=== PATIENT | female | born 1970 | race Caucasian/White ===

== ENCOUNTER → 2017-02-09 | Outpatient (CLI) | payer OTHER ==
[~2017-02-09] MED LIST: ACET325T14 PO; ALPR-475 PO; CALC1TAB PO; CHOL50002 PO; CYCL-259 PO; CYCL5TAB10 PO; DIAZ5TAB PO; DOCU100C PO; DOXY100T PO; FURO-92 PO; GABA300C10 PO; HYDR1TAB12; HYDR1TAB12 PO; HYOS0.127 PO; IRON15TA3 PO; LORA-445 PO; MVI,10VI2 HOMEMISC; NALO0.4D2 IM; NALO0.4V14 IM; NALO25TA PO; OMEG300C PO; OMEP20CA9 PO; ONDA4TAB13 SL; OXYC20TA2 PO; OXYC30TA PO; OXYC5TAB3 PO; PROM25SU34 PO; TIZA2CAP PO; [UNRECOGNIZED DRUG - CODE] PO; hycosamine SL
== END | disposition home or self-care (01) ==
LOC: CFH 15:34
PROVIDERS: ATTEND Nurse Practitioner Family
DX: M54.2 Cervicalgia (principal); R13.10 Dysphagia, unspecified; R22.1 Localized swelling, mass and lump, neck
CPT/HCPCS: 72050; 76536

== ENCOUNTER 2017-03-17 16:52 | Emergency (ER) | payer OTHER ==
[~2017-03-17] VITALS: Ht 165.1 cm; Wt 86.0 kg
[2017-03-17] MEDS ORDERED: SODIUM CHLORIDE 0.9% 1,000ML IVBOLUS ONE (18:00)
[2017-03-17] MEDS ORDERED: ASPIRIN 81 MG TABLET CHEW PO ONE (18:00)
[2017-03-17] MEDS ORDERED: SODIUM CHLORIDE FLUSH 10ML SYR IVF ONE (18:00)
[2017-03-17] MEDS ORDERED: ONDANSETRON 2MG/ML, 2ML IVPush ONE (18:00)
[2017-03-17 18:21] LABS: ASPARTATE AMINO TRANSFERASE 28 U/L (15-37); BLOOD UREA NITROGEN 18 mg/dL (7-18)
[2017-03-17] MEDS ORDERED: ASPIRIN 81 MG TABLET CHEW ONE (18:21)
[2017-03-17] MEDS ORDERED: ONDANSETRON 2MG/ML, 2ML ONE (18:21)
[2017-03-17 18:29] LABS: IS PT STATUS REG ER OR PRE ER? YES
[2017-03-17 19:29] VITALS: BP 133/74
== END 2017-03-17 19:31 | disposition home or self-care (01) ==
LOC: ED 19:25
DX: R07.89 Other chest pain (principal); G43.909 Migraine, unspecified, not intractable, without status migrainosus; K75.9 Inflammatory liver disease, unspecified; K21.9 Gastro-esophageal reflux disease without esophagitis
CPT/HCPCS: 36415; 71010; 80053; 82962; 83690; 84484; 85025; 93005; 96361; 96374; 99285; J2405; J7030

== ENCOUNTER → 2017-04-10 | Outpatient (CLI) | payer OTHER ==
[~2017-04-10] MED LIST changes: +GADOBUTROL 10 MMOL/10 ML PFS ONE
== END | disposition home or self-care (01) ==
LOC: RAD 14:36 → EDSTATUS 14:45
PROVIDERS: ATTEND Neurological Surgery
DX: M48.02 Spinal stenosis, cervical region (principal); M50.21 Other cervical disc displacement, high cervical region; M50.221 Other cervical disc displacement at C4-C5 level; Z98.890 Other specified postprocedural states; Z98.1 Arthrodesis status
CPT/HCPCS: 70543; A9585

== ENCOUNTER 2017-12-20 16:43 | Inpatient (IN) | payer OTHER ==
[~2017-12-20] VITALS: Ht 165.1 cm; Wt 92.3 kg
[~2017-12-20 16:43] MED LIST changes: +DOCU-180 PO; -DOCU100C PO; -GADOBUTROL 10 MMOL/10 ML PFS ONE; +HYOS0.1268 PO; -HYOS0.127 PO
[2017-12-20] MEDS ORDERED: METH500T97 PO (17:01)
[2017-12-20] MEDS ORDERED: PANT20TA2 PO (17:03)
[2017-12-20] MEDS ORDERED: CARB200T4 PO (17:04)
[2017-12-20] MEDS ORDERED: SODIUM CHLORIDE 0.9% 1,000ML IVBOLUS ONE (17:30)
[2017-12-20] MEDS ORDERED: SODIUM CHLORIDE FLUSH 10ML SYR IVF ONE (17:30)
[2017-12-20 17:50] LABS: BASOPHILS # (AUTO) 0.02 x10^3/uL (0-0.1); BASOPHILS % (AUTO) 0 % (0-1); EOSINOPHILS # (AUTO) 0.08 x10^3/uL (0-0.4); EOSINOPHILS % (AUTO) 1 % (1-7); LYMPHOCYTES # (AUTO) 1.58 x10^3/uL (1-3.4); LYMPHOCYTES % (AUTO) 26 % (22-44); MD NO; MEAN CORPUSCULAR HGB CONC 32.8 g/dL (32.4-35.8); MEAN CORPUSCULAR VOLUME 85.4 fL (80-100); MEAN PLATELET VOLUME 8.6 fL (7.4-10.4); MONOCYTES # (AUTO) 0.39 x10^3/uL (0.2-0.8); MONOCYTES % (AUTO) 7 % (2-9); NEUTROPHILS # (AUTO) 3.92 x10^3/uL (1.8-6.8); NEUTROPHILS % (AUTO) 66 % (42-75); PLATELET COUNT 252 x10^3/uL (130-400); RED BLOOD COUNT 4.94 x10^6/uL (3.82-5.3); RED CELL DISTRIBUTION WIDTH 14.3 % (9.6-15.2)
[2017-12-20 18:00] LABS: ALBUMIN 3.7 g/dL (3.4-5.0); ANION GAP 7 mmol/L (5-15); CALCIUM 8.5 mg/dL (8.5-10.1); CHLORIDE 106 mmol/L (98-107); CREATININE 0.67 mg/dL (0.55-1.02)
[2017-12-20 18:04] LABS: INTERNATIONAL NORMALIZED RATIO 0.94 (0.93-1.1); PROTHROMBIN TIME 9.8 Seconds (9.6-11.5); TROPONIN I < 0.015 ng/mL (0.000-0.045)
[2017-12-20] MEDS ORDERED: OMNIPAQUE 350 MG/ML, 100ML BOTTLE ONE (18:04)
[2017-12-20] MEDS ORDERED: KETOROLAC 30 MG/1 ML IVPush STA (18:52)
[2017-12-20] MEDS ORDERED: KETOROLAC 30 MG/1 ML ONE (18:53)
[2017-12-20] MEDS ORDERED: POLYETHYLENE GLYCOL 17 GM PACKET PO PRN (19:30)
[2017-12-20] MEDS ORDERED: BISACODYL 10 MG SUPP PR PRN (19:30)
[2017-12-20] MEDS ORDERED: ACETAMINOPHEN 325 MG TABLET PO PRN (19:30)
[2017-12-20] MEDS ORDERED: KETOROLAC 30 MG/1 ML IVPush ONE (19:30)
[2017-12-20] MEDS ORDERED: ERGOCALCIFEROL 50,000 UNIT CAPSULE PO SCH (19:30)
[2017-12-20 20:01] VITALS: BP 137/83
[2017-12-20] MEDS: SODIUM CHLORIDE FLUSH 10ML SYR IVF SCH (21:00)
[2017-12-20] MEDS: HYOSCYAMINE 0.125 MG TABLET PO SCH (21:00)
[2017-12-20] MEDS: CALCIUM/VITAMIN D3 250-125 TABLET PO SCH (21:14)
[2017-12-20] MEDS: GABAPENTIN 300 MG CAPSULE PO SCH (21:15)
[2017-12-20] MEDS: OXYcodone IR 5MG TABLET PO PRN (21:15)
[2017-12-20] MEDS: CARBAMAZEPINE 200 MG TABLET PO SCH (21:15)
[2017-12-21 00:34] VITALS: BP 91/57
[2017-12-21] MEDS: OXYcodone IR 5MG TABLET PO PRN ×5 (04:05→19:49)
[2017-12-21] MEDS ORDERED: CARB200T4 PO (04:15)
[2017-12-21 04:53] LABS: BASOPHILS # (AUTO) 0.04 x10^3/uL (0-0.1); BASOPHILS % (AUTO) 1 % (0-1); EOSINOPHILS # (AUTO) 0.09 x10^3/uL (0-0.4); EOSINOPHILS % (AUTO) 2 % (1-7); LYMPHOCYTES % (AUTO) 36 % (22-44); MD NO; MEAN CORPUSCULAR HEMOGLOBIN 28.4 pg (27.0-34.8); MEAN CORPUSCULAR HGB CONC 33.1 g/dL (32.4-35.8); MEAN CORPUSCULAR VOLUME 85.5 fL (80-100); MEAN PLATELET VOLUME 8.3 fL (7.4-10.4); MONOCYTES # (AUTO) 0.29 x10^3/uL (0.2-0.8); MONOCYTES % (AUTO) 7 % (2-9); NEUTROPHILS # (AUTO) 2.43 x10^3/uL (1.8-6.8); NEUTROPHILS % (AUTO) 55 % (42-75); PLATELET COUNT 225 x10^3/uL (130-400); RED BLOOD COUNT 4.45 x10^6/uL (3.82-5.3); RED CELL DISTRIBUTION WIDTH 14.7 % (9.6-15.2)
[2017-12-21 05:14] LABS: TROPONIN I < 0.015 ng/mL (0.000-0.045)
[2017-12-21 05:15] LABS: ALANINE AMINOTRANSFERASE 49 U/L (12-78); ALBUMIN 3.3 g/dL (3.4-5.0); ANION GAP 6 mmol/L (5-15); CALCIUM 8.3 mg/dL (8.5-10.1); CHLORIDE 108 mmol/L (98-107)
[2017-12-21 05:17] LABS: ALKALINE PHOSPHATASE 62 U/L (45-117); BILIRUBIN,TOTAL 0.2 mg/dL (0.2-1.0); TOTAL PROTEIN 6.6 g/dL (6.4-8.2)
[2017-12-21] MEDS: CARBAMAZEPINE 200 MG TABLET PO SCH ×2 (05:23→22:39)
[2017-12-21] MEDS: GABAPENTIN 300 MG CAPSULE PO SCH ×3 (05:30→22:38)
[2017-12-21 08:31] VITALS: BP 107/70
[2017-12-21] MEDS ORDERED: METHOCARBAMOL 500 MG TABLET PO SCH (09:00)
[2017-12-21] MEDS: HYOSCYAMINE 0.125 MG TABLET PO SCH ×2 (09:00→21:00)
[2017-12-21] MEDS: SENNA/DOCUSATE TABLET PO SCH (09:36)
[2017-12-21] MEDS: SODIUM CHLORIDE FLUSH 10ML SYR IVF SCH ×2 (09:36→21:00)
[2017-12-21] MEDS: CALCIUM/VITAMIN D3 250-125 TABLET PO SCH ×2 (09:37→22:38)
[2017-12-21] MEDS ORDERED: INDOMETHACIN 50 MG CAPSULE ONE (12:40)
[2017-12-21 12:58] VITALS: BP 103/67
[2017-12-21] MEDS: INDOMETHACIN 25 MG CAPSULE PO SCH ×3 (13:14→22:38)
[2017-12-21] MEDS ORDERED: ONDANSETRON 2MG/ML, 2ML ONE (14:53)
[2017-12-21] MEDS: ONDANSETRON 2MG/ML, 2ML IVPush PRN ×2 (15:00→22:38)
[2017-12-21] MEDS ORDERED: GADOBUTROL 10 MMOL/10 ML PFS ONE (15:21)
[2017-12-21 19:19] VITALS: BP 112/76
[2017-12-21] MEDS: METHOCARBAMOL 750 MG TABLET PO PRN (22:47)
[2017-12-22 02:00] VITALS: BP 107/70
[2017-12-22] MEDS: METHOCARBAMOL 750 MG TABLET PO PRN (06:21)
[2017-12-22] MEDS: OXYcodone IR 5MG TABLET PO PRN ×4 (06:21→20:09)
[2017-12-22 07:06] VITALS: BP 112/72
[2017-12-22] MEDS: HYOSCYAMINE 0.125 MG TABLET PO SCH ×2 (09:00→19:55)
[2017-12-22] MEDS: SODIUM CHLORIDE FLUSH 10ML SYR IVF SCH ×2 (09:23→19:55)
[2017-12-22] MEDS: INDOMETHACIN 25 MG CAPSULE PO SCH (09:24)
[2017-12-22] MEDS: GABAPENTIN 300 MG CAPSULE PO SCH ×3 (09:25→19:54)
[2017-12-22] MEDS: CALCIUM/VITAMIN D3 250-125 TABLET PO SCH ×2 (09:25→19:54)
[2017-12-22] MEDS: CARBAMAZEPINE 200 MG TABLET PO SCH ×2 (09:26→19:54)
[2017-12-22] MEDS: SENNA/DOCUSATE TABLET PO SCH (10:44)
[2017-12-22 13:13] VITALS: BP 127/85
[2017-12-22 19:24] VITALS: BP 137/83
[2017-12-23] MEDS ORDERED: CALCIUM CARBONATE 500 MG TAB.CHEW PO PRN
[2017-12-23] MEDS ORDERED: MAALOX/HYOSCYAMINE/LIDOCAINE 45 ML BTL PO ONE
[2017-12-23] MEDS: OXYcodone IR 5MG TABLET PO PRN ×4 (00:16→12:45)
[2017-12-23 02:25] VITALS: BP 131/78
[2017-12-23] MEDS: METHOCARBAMOL 750 MG TABLET PO PRN ×2 (02:29→08:26)
[2017-12-23 07:39] VITALS: BP 113/74
[2017-12-23] MEDS: CALCIUM/VITAMIN D3 250-125 TABLET PO SCH (08:25)
[2017-12-23] MEDS: CARBAMAZEPINE 200 MG TABLET PO SCH (08:25)
[2017-12-23] MEDS: GABAPENTIN 300 MG CAPSULE PO SCH (08:25)
[2017-12-23] MEDS: SENNA/DOCUSATE TABLET PO SCH (08:26)
[2017-12-23] MEDS: HYOSCYAMINE 0.125 MG TABLET PO SCH (08:26)
[2017-12-23] MEDS: SODIUM CHLORIDE FLUSH 10ML SYR IVF SCH (09:00)
[2017-12-23] MEDS ORDERED: PANTOPRAZOLE 20MG TABLET PO SCH (10:00)
[2017-12-23] MEDS ORDERED: CARB200T4 PO (13:02)
[2017-12-23] MEDS ORDERED: PRED10TA PO (13:02)
[2017-12-23] MEDS ORDERED: METH750T2 PO (13:02)
[2017-12-23] MEDS ORDERED: ZOLM5TAB8 PO (13:02)
[2017-12-23 13:39] VITALS: BP 143/83
== END 2017-12-23 15:20 | disposition home health service (06) | DRG 74 ==
LOC: ED 17:09 → EDIP 18:23 → 3NE 19:25 → 4WST 12-21 05:05 → 3NE 12-21 05:16
PROVIDERS: ADMIT Internal Medicine; ATTEND Internal Medicine
DX: G50.0 Trigeminal neuralgia (principal); I51.81 Takotsubo syndrome; G90.2 Horner's syndrome; G43.C0 Periodic headache syndromes in child or adult, not intractable; F41.1 Generalized anxiety disorder; G43.909 Migraine, unspecified, not intractable, without status migrainosus; H53.149 Visual discomfort, unspecified; M54.12 Radiculopathy, cervical region; K21.9 Gastro-esophageal reflux disease without esophagitis; I10 Essential (primary) hypertension; Z83.3 Family history of diabetes mellitus; Z86.32 Personal history of gestational diabetes; Z90.49 Acquired absence of other specified parts of digestive tract; Z90.710 Acquired absence of both cervix and uterus; Z98.84 Bariatric surgery status; Z98.891 History of uterine scar from previous surgery; Z90.89 Acquired absence of other organs; Z88.6 Allergy status to analgesic agent; Z88.5 Allergy status to narcotic agent; Z88.8 Allergy status to other drugs, medicaments and biological substances
CPT/HCPCS: 36415; 70450; 70498; 70553; 71045; 72156; 80048; 80053; 82040; 83735; 84484; 85025; 85610; 85730; 93005; 96361; 96374; A9585; J1885; J2405; J2930; Q9967; J7030

== ENCOUNTER 2018-08-03 21:14 | Observation (INO) | payer OTHER ==
[~2018-08-03] VITALS: Ht 165.1 cm; Wt 79.8 kg
[~2018-08-03 21:14] MED LIST changes: +CARB200T4 PO; +METH500T97 PO; +METH750T2 PO; +PANT20TA2 PO; +PRED10TA PO; +ZOLM5TAB8 PO
[2018-08-03 22:20] LABS: BASOPHILS # (AUTO) 0.06 x10^3/uL (0-0.1); BASOPHILS % (AUTO) 1 % (0-1); EOSINOPHILS # (AUTO) 0.04 x10^3/uL (0-0.4); EOSINOPHILS % (AUTO) 1 % (1-7); LYMPHOCYTES # (AUTO) 1.42 x10^3/uL (1-3.4); LYMPHOCYTES % (AUTO) 23 % (22-44); MD NO; MEAN CORPUSCULAR HEMOGLOBIN 27.7 pg (27.0-34.8); MEAN CORPUSCULAR HGB CONC 33.3 g/dL (32.4-35.8); MEAN CORPUSCULAR VOLUME 83.3 fL (80-100); MEAN PLATELET VOLUME 8.4 fL (7.4-10.4); MONOCYTES # (AUTO) 0.39 x10^3/uL (0.2-0.8); MONOCYTES % (AUTO) 6 % (2-9); NEUTROPHILS # (AUTO) 4.21 x10^3/uL (1.8-6.8); NEUTROPHILS % (AUTO) 69 % (42-75); PLATELET COUNT 227 x10^3/uL (130-400); RED BLOOD COUNT 4.47 x10^6/uL (3.82-5.3); RED CELL DISTRIBUTION WIDTH 15.9 % (9.6-15.2)
[2018-08-03 22:29] LABS: ALANINE AMINOTRANSFERASE 22 U/L (12-78); ALBUMIN 3.6 g/dL (3.4-5.0); ANION GAP 5 mmol/L (5-15); CALCIUM 8.4 mg/dL (8.5-10.1); CHLORIDE 111 mmol/L (98-107); CREATININE 0.73 mg/dL (0.55-1.02)
[2018-08-03 22:34] LABS: ALKALINE PHOSPHATASE 81 U/L (45-117); BILIRUBIN,TOTAL 0.2 mg/dL (0.2-1.0); TOTAL PROTEIN 6.6 g/dL (6.4-8.2); TROPONIN I < 0.015 ng/mL (0.000-0.045)
[2018-08-04] MEDS ORDERED: BACL5TAB PO (00:34)
[2018-08-04 01:05] VITALS: BP 115/79
[2018-08-04] MEDS ORDERED: OXYcodone IR 5MG TABLET PO ONE (01:30)
[2018-08-04 02:00] VITALS: BP 113/75
[2018-08-04] MEDS ORDERED: BUTALB/APAP/CAFFEINE 50MG/325MG/40MG PO PRN (04:00)
[2018-08-04 07:11] VITALS: BP 116/79
[2018-08-04] MEDS ORDERED: ZOLMITRIPTAN 5 MG PO PRN (08:30)
[2018-08-04] MEDS ORDERED: GABAPENTIN 300 MG CAPSULE PO SCH ×2 (08:30→09:00)
[2018-08-04] MEDS ORDERED: METHOCARBAMOL 750 MG TABLET PO PRN (08:30)
[2018-08-04] MEDS ORDERED: ONDANSETRON ODT 4 MG BC PRN (08:30)
[2018-08-04] MEDS: methylPREDNISolone SOD SUCC 125 MG/2 ML IV SCH ×2 (08:33→16:03)
[2018-08-04] MEDS: OXYcodone IR 5MG TABLET PO PRN ×2 (08:50→13:16)
[2018-08-04] MEDS ORDERED: HYOSCYAMINE 0.125 MG TABLET PO SCH (09:00)
[2018-08-04] MEDS ORDERED: SENNA/DOCUSATE TABLET PO SCH (09:00)
[2018-08-04] MEDS ORDERED: SODIUM CHLORIDE FLUSH 10ML SYR IVF SCH (09:00)
[2018-08-04] MEDS ORDERED: ACETAMINOPHEN 325 MG TABLET PO PRN (09:00)
[2018-08-04] MEDS ORDERED: CARBAMAZEPINE 300 MG PO SCH (09:00)
[2018-08-04] MEDS ORDERED: DOCUSATE 100 MG CAPSULE PO PRN (09:00)
[2018-08-04] MEDS ORDERED: ONDANSETRON 2MG/ML, 2ML IVPush PRN (09:00)
[2018-08-04] MEDS: CARBAMAZEPINE 200 MG TABLET PO SCH ×2 (09:18→16:00)
[2018-08-04] MEDS: GABAPENTIN 300 MG CAPSULE PO SCH ×2 (09:18→13:17)
[2018-08-04] MEDS: BACLOFEN 10 MG TABLET PO SCH ×2 (11:00→16:00)
[2018-08-04 12:29] VITALS: BP 129/83
[2018-08-04] MEDS ORDERED: PRED20TA PO (14:53)
== END 2018-08-04 17:23 | disposition home or self-care (01) ==
LOC: ED 23:18 → EDIP 23:20 → INTOOBSV 23:20 → 3NW 23:44 → UNDODISIN 08-04 17:23
PROVIDERS: ADMIT Family Medicine; ATTEND Family Medicine
DX: R53.1 Weakness (principal); M54.12 Radiculopathy, cervical region; F41.1 Generalized anxiety disorder; K21.9 Gastro-esophageal reflux disease without esophagitis; G44.009 Cluster headache syndrome, unspecified, not intractable; Z79.891 Long term (current) use of opiate analgesic; Z82.3 Family history of stroke; Z83.3 Family history of diabetes mellitus; Z86.19 Personal history of other infectious and parasitic diseases; Z86.32 Personal history of gestational diabetes; Z90.710 Acquired absence of both cervix and uterus; Z98.84 Bariatric surgery status
CPT/HCPCS: 36415; 70450; 71045; 80053; 84443; 84484; 85025; 93005; 96374; 96376; 99285; G0378; J2930

== ENCOUNTER → 2018-08-20 | Outpatient (CLI) | payer OTHER ==
[~2018-08-20] MED LIST changes: +BACL5TAB PO; +PRED20TA PO
== END | disposition home or self-care (01) ==
LOC: CFH 06:55
PROVIDERS: ATTEND Nurse Practitioner Family
DX: M48.02 Spinal stenosis, cervical region (principal)
CPT/HCPCS: 72141